=== PATIENT | female | born 1955 | race Caucasian/White ===

== ENCOUNTER → 2018-06-28 | Outpatient (CLI) | payer BC ==
[~2018-06-28] MED LIST: ALEN70SO4 PO
--- NOTE | 2018-06-28 14:31 | RADIOLOGY IMAGING REPORT ---
FACILITY: [facility] - [place] PATIENT NAME: Lulu Menezes : 1955 MR: [id number] V: [id number] EXAM DATE: ORDERING PHYSICIAN: MEÑO PINO TECHNOLOGIST: [place] [facility] [place] M[place] : 1955 Visit/Account:[id number] Date of Sevice: 06/28/2018 Exam type: HIPS BILATERAL History: Bilateral hip pain, no known injury Comparison: None. Findings: Two views of the right hip demonstrate no evidence of acute fracture dislocation or significant arthr itic change. There is a 3 mm well-corticated ovoid of bony/calcific density projecting just lateral to the superior aspect of the right hip joint appears to be chronic. No lytic or blastic bone lesion s are seen IMPRESSION: 1. 3 mm well-corticated ovoid bony/calcific density projects just lateral to the superior aspect rig ht hip joint which appears to be chronic. No significant arthritic change and no evidence of acute f racture or dislocation Report Dictated By: Veronika Cantu MD at 06/28/2018 2:26 PM Report E-Signed By: Veronika Cantu MD at 06/28/2018 2:27 PM WSN:[email or web address]
== END ==
LOC: RAD 14:04
PROVIDERS: ATTEND Nurse Practitioner Family
DX: M25.851 Other specified joint disorders, right hip (principal); M25.551 Pain in right hip; M25.552 Pain in left hip
CPT/HCPCS: 73522

== ENCOUNTER → 2018-12-06 | Outpatient (CLI) | payer BC ==
--- NOTE | 2018-12-06 09:24 | RADIOLOGY IMAGING REPORT ---
FACILITY: [facility] - [place] PATIENT NAME: Lulu Menezes : 1955 MR: [id number] V: [id number] EXAM DATE: ORDERING PHYSICIAN: MEÑO PINO TECHNOLOGIST: Location: [facility] - [place] Patient: Lluu Menezes : 1955 Visit/Account:[id number] Date of Sevice: 12/06/2018 DEXA Scan Clinical history: Osteoporosis, postmenopausal. Comparison: DEXA scan from 03/31/2016. LUMBAR SPINE: The bone mineral density (BMD) measured from L1-L4 correlates with a Z-score of -0.8 and a T-score of -2.5 which is osteoporosis as defined by the World Health Organization. The corresponding risk of f racture in the lumbar spine is 6 times increased compared with a young adult reference population. T his value has decrease by 1.9 % since the prior study. More than 5% change is considered significant . HIP: Bone mineral density (BMD) measured in the LEFT total hip region correlates with a Z-score -0.8 and a T-score of -2 which is osteopenia as defined by the World Health Organization. The corresponding ri sk of fracture in the hip is 4 times increased compared to a young adult reference population. This v alue has increased by 2.6 % since the prior study. More than 5% change is considered significant. T score left femoral neck -2.9 Bone mineral density (BMD) measured in the Femoral Neck region measures 0.642 g/cm?. IMPRESSION: 1. Lumbar spine: Osteoporosis. There has been 1.9% decrease in the bone mineral density since the p revious exam. 2. Left Total Hip: Osteopenia. There has been 2.6% increase in the bone mineral density since the p revious exam. 3. Femoral Neck: Bone Mineral Density is 0.642 g/cm? The next DEXA scan of this patient should include the following sites: L1-L4 and the left hip. FRAX? WHO Fracture Risk Assessment Tool link: <http://www.shef.ac.uk/FRAX/tool.jsp?locationValue=9> PLEASE NOTE: 1) The World Health Organization defines low BMD as follows: T-score Normal > -1 Osteopenia < -1 and > -2.5 Osteoporosis < -2.5 without fractures Established osteoporosis < -2.5 with fractures 2) In general, you may wish to consider: Diagnosis Treatment Follow-up DEXA Normal BMD Prevention 2-3 years Osteopenia Prevention/therapy 1-2 years Osteoporosis Therapy Yearly 3) Fracture risk estimated from the T-score is more accurate for vertebral fractures (often spontane ous) than for hip fractures. Report Dictated By: Veronika Cantu MD at 12/06/2018 9:15 AM Report E-Signed By: Veronika Cantu MD at 12/06/2018 9:19 AM WSN:[email or web address]
== END ==
LOC: RAD 00:21
PROVIDERS: ATTEND Nurse Practitioner Family
DX: M85.88 Other specified disorders of bone density and structure, other site (principal); M85.852 Other specified disorders of bone density and structure, left thigh
CPT/HCPCS: 77080

== ENCOUNTER → 2019-03-20 | Outpatient (CLI) | payer BC ==
--- NOTE | 2019-03-21 11:11 | RADIOLOGY IMAGING REPORT ---
FACILITY: [facility] PATIENT NAME: REGINA LAY : [id number] MR: [id number] V: [id number] EXAM DATE: [id number] ORDERING PHYSICIAN: MEÑO PINO TECHNOLOGIST: Angela Garcia PROCEDURE: BILATERAL DIGITAL SCREENING MAMMOGRAM WITH CAD ASSISTED INTERPRETATION & 3D TOMOSYNTHESIS REASON FOR STUDY: Screening. FAMILY HISTORY OF BREAST CANCER: Maternal grandmother and maternal great aunt. BREAST PROCEDURES/TREATMENTS: None. COMPARISON: 03/28/16, 07/09/14, 06/18/13. VIEWS OBTAINED: Bilateral 2D & 3D full field CC & MLO projections & bilateral 2D fill field XCC projections. BREAST DENSITY: The breasts are heterogeneously dense which can obscure small masses. MAMMOGRAM FINDINGS: The parenchymal pattern has remained stable allowing for difference in mammographic technique & patient positioning. IMPRESSION: BIRADS 1: Negative. DIAGNOSTIC CATEGORY 1--NEGATIVE. RECOMMENDATIONS: ROUTINE MAMMOGRAM AND CLINICAL EVALUATION. Dictated by: Veronika Cantu M.D. on 03/20/2019 at 9:50 Transcribed by: TRELL on 03/21/2019 at 10:58 Approved by: Veronika Cantu M.D. on 03/21/2019 at 11:06 [facility]
== END ==
LOC: MAMO 01:33
PROVIDERS: ATTEND Nurse Practitioner Family
DX: Z12.31 Encounter for screening mammogram for malignant neoplasm of breast (principal)
CPT/HCPCS: 77063; 77067